=== PATIENT | female | born 2000 | race Caucasian/White ===

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

== ENCOUNTER 2022-04-08 14:32 | Emergency (ER) | payer MEDICAID, SELFPAY ==
[2022-04-08 14:35] VITALS: BP 134/74; PULSE 100; RESP 18; TEMP 36.7; O2SAT 98; BMI 26.6
--- NOTE | 2022-04-08 14:54 | ED_ITS ---
HPI - Abdominal Pain General Chief Complaint: Abdominal Pain Stated Complaint: Vomiting Related Data Previous Rx's Medication Instructions Recorded ondansetron 4 mg disintegrating 4 mg PO Q8H PRN nausea and 11/10/21 tablet vomiting #10 tabs cephalexin 500 mg capsule 500 mg PO QID 7 days #28 caps 11/23/21 doxycycline hyclate 100 mg tablet 100 mg PO BID 7 days #14 tabs 11/23/21 mupirocin 2 % topical ointment 1 appl topical TID #22 grams 11/23/21 Allergies Allergy/AdvReac Type Severity Reaction Status Date / Time No Known Allergies Allergy Verified 08/01/21 14:14 [facility] Past Medical History Medical History No known health problems Social History Social History Alcohol intake: never Advance Directives: No Advance Directives Information Provided: Yes Sexual orientation: Straight/Heterosexual Gender identity: Female Physical Exam ED Vital Signs: Vital Signs - 24 hr 04/08/22 14:35 Temperature 98.1 F Pulse Rate 100 Respiratory Rate 18 Blood Pressure 134/74 Pulse Oximetry 98 Oxygen Delivery Method Room Air BMI result Body Mass Index 26.6 Course Course Course Narrative: This is a rapid medical exam. Deferred additional HPI, ROS, PE to primary provider. Patient here with 1 hour of abdominal pain, vomiting, headache. Will check labs, UA, urine , COVID and flu testing. Will give sublingual Zofran. Vital signs stable Medications Administered Discontinued Medications Generic Name Dose Route Start Last Admin Trade Name Cayetanoq PRN Reason Stop Dose Admin Ondansetron HCl 4 mg 04/08/22 14:55 04/08/22 14:56 Ondansetron Odt 4 Mg Tab.Rapdis TRANSLINGU 04/08/22 14:56 4 mg ONCE ONE Administration MDM - Abdominal Pain Lab Data Labs: Lab Results 04/08/22 04/08/22 Range/Units 15:26 15:26 COVID-19 (LESLIE) Negative (Negative) COVID-19 Clin Com See Note Influenza Type A (KARISSA) Negative (Negative) Influenza Type B (KARISSA) Negative (Negative) Influenza A & B Note See Note Discharge Plan Discharge Clinical Impression: Abdominal pain Patient Disposition: Elopement Prescriptions: No Action ondansetron 4 mg tablet,disintegrating 4 mg PO Q8H PRN (Reason: nausea and vomiting) Qty: 10 0RF cephalexin 500 mg capsule 500 mg PO QID 7 Days Qty: 28 0RF doxycycline hyclate 100 mg tablet 100 mg PO BID 7 Days Qty: 14 0RF mupirocin 2 % ointment 1 appl topical TID Qty: 22 1RF Interventions: ED Discharge Assessment Last Done: 04/08/22 16:25 Discharge Date/Time: 04/08/22 16:26
[2022-04-08] MEDS: Ondansetron ODT 4 MG TAB.RAPDIS TRANSLINGU (14:56)
--- NOTE | 2022-04-08 15:43 | PC.NURSE ---
pt not tolerating blood work, stating to take the needle out immediately and swearing at staff. pt uncooperative. pt stated that she wanted to leave because the staff here is unprofessional and to open the door for her. pt pushing on the door to be let out and refused to speak further about the situation with staff, pt walked back out to the waiting room and is waiting in the entrance of the ED.
[2022-04-08 15:49] LABS: COVID-19 Test Negative (Negative); IDNOW Serial# 16C4AD1C
[2022-04-08 15:52] LABS: IDNOW Serial# 9DB6401D; Influenza A Negative (Negative); Influenza B2 Negative (Negative)
== END 2022-04-08 16:26 | disposition left against medical advice (07) ==
PROVIDERS: Nurse Practitioner Family; Emergency Provider Emergency Medicine
DX: R10.9 Unspecified abdominal pain (principal); R11.10 Vomiting, unspecified; Z20.822 Contact with and (suspected) exposure to COVID-19; Z79.899 Other long term (current) drug therapy
CPT/HCPCS: 87502; 87635; 99282

== ENCOUNTER 2022-11-01 09:45 | Emergency (ER) | payer MEDICAID, SELFPAY ==
[2022-11-01 10:10] VITALS: BP 124/92; PULSE 57; RESP 16; TEMP 36.6; O2SAT 100; BMI 26.4
[2022-11-01 10:43] LABS: MANUAL DIFF FLAG NO
[2022-11-01 10:45] LABS: Basophils Percent Auto 0.2 % (0-2); Eosinophils Percent Auto 0.1 % (0-4); Hematocrit 40.4 % (37.0-47.0); Hemoglobin 13.2 g/dl (12.0-16.0); Imm Gran Abs Auto 0.02 X10*3/uL (0.00-0.03); Imm Gran Pct Auto 0.2 % (0.0-0.4); Lymphocytes Percent Auto 11.9 % (20-40); Mean Corpuscular HGB Conc 32.7 g/dl (31.0-35.0); Mean Corpuscular Hemoglobin 26.9 pg (27.0-33.0); Mean Corpuscular Volume 82.4 fL (80.0-98.0); Mean Platelet Volume 12.9 fL (9.4-12.3); Monocytes Absolute Auto 0.3 X10*3/uL (0.1-1.2); Monocytes Percent Auto 3.5 % (2-11); Neutrophils Absolute Auto 7.4 x10*3/uL (2.0-8.3); Neutrophils Percent Auto 84.1 % (45-73); Platelet Count 335 X10*3/uL (160-400); Red Cell Distribution Width 13.9 % (11.0-16.0); White Blood Count 8.8 X10*3/uL (4.8-10.8)
[2022-11-01 11:04] LABS: Acetaminophen LAB < 17 mcg/mL (<30)
[2022-11-01 11:05] LABS: Alanine Aminotransferase 16 U/L (0-31); Albumin Level 4.4 g/dL (3.5-5.0); Alkaline Phosphatase 58 U/L (39-117); Anion Gap 15 (12-20); Aspartate Amino Transferase 18 U/L (5-31); Bilirubin Total 1.3 mg/dL (0.0-1.0); Blood Urea Nitrogen 7 mg/dL (9-16); Calcium 10.4 mg/dL (8.4-10.2); Carbon Dioxide 25 mmol/L (22-29); Chloride 105 mmol/L (96-108); Creatinine Clr Calc Pharmacy 139.3; Estimated Glomerular Filt Rate > 60; Glucose Random 92 mg/dL (60-115); Lipase 76 U/L (8-78); Potassium 3.8 mmol/L (3.3-5.1); Sodium 141 mmol/L (135-145); Total Protein 7.5 g/dL (6.5-8.0)
[2022-11-01 11:38] VITALS: BP 127/75; PULSE 54; RESP 14; TEMP 37; O2SAT 99
--- NOTE | 2022-11-01 11:38 | ED.NAVMDI ---
HPI - Nausea/Vomiting/Diarrhea General Chief complaint: Nausea/Vomiting/Diarrhea Stated complaint: vomiting Time Seen by Provider: 11/01/22 11:37 Source: patient, RN notes reviewed and old records reviewed Mode of arrival: ambulatory History of Present Illness HPI Narrative: 22-year-old female with no significant past medical history presenting to the ED complaining of accidental Tylenol and Motrin overdose since yesterday at noon. Patient admits to binge drinking 2 days ago, admits woke up yesterday hung over, nauseous and with epigastric abdominal pain as well as acute on chronic toothache, was taking 2-4 pills of 500 mg Tylenol and 2-4 pills of 200 mg ibuprofen every hour from noon until 02:00AM for dental pain. Patient denies SI/SI attempt. Denies other illicit substances or drugs yesterday. Reports decreased p.o. intake/inability to tolerate p.o., persistent nausea and abdominal discomfort. Denies fever/chills, diarrhea, dysuria/hematuria, melena/brbpr. Denies recent dental procedures, drainage from area MD elicited complaint: nausea, vomiting and abdominal pain Related Data Previous Rx's Medication Instructions Recorded ondansetron 4 mg disintegrating 4 mg PO Q8H PRN nausea and 11/10/21 tablet vomiting #10 tabs cephalexin 500 mg capsule 500 mg PO QID 7 days #28 caps 11/23/21 doxycycline hyclate 100 mg tablet 100 mg PO BID 7 days #14 tabs 11/23/21 mupirocin 2 % topical ointment 1 appl topical TID #22 grams 11/23/21 amoxicillin 500 mg capsule 500 mg PO Q8H 7 days #21 caps 11/01/22 Allergies Allergy/AdvReac Type Severity Reaction Status Date / Time No Known Allergies Allergy Verified 11/01/22 10:10 Review of Systems Review of Systems: Constitutional: No Fever, No Chills, No Fatigue, No Malaise ENT/Mouth: No Ear Pain, No Nasal Congestion, No sore throat, No Rhinorrhea, No Swallowing Difficulty Eyes: No Eye Pain, No Swelling, No Redness, No Vision Changes Cardiovascular: No Chest Pain, No SOB Respiratory: No Cough, No Sputum, No Dyspnea Gastrointestinal: + Nausea, + Vomiting, No Diarrhea, No Constipation, + Abdominal pain, No Hematochezia, No Melena Genitourinary: No Dysuria, No Urinary Frequency, No Hematuria, No Flank Pain Musculoskeletal: No joint pain, No Myalgias, No Joint Swelling Skin: No Skin Lesions, No rash Neuro: No Weakness, No Numbness, No Headache Psych: No Anxiety/Panic, No Depression, No SI/HI/AH/VH, No Social Issues Yes all other systems are reviewed and are negative Constitutional: Constitutional: Reports as per [facility] Past Medical History Attestation statement: The following information was validated with the patient. Source: old records reviewed Medical History No known health problems Social History Social History Alcohol intake: current Alcohol intake frequency: a few times a week Smoked in Last 30 Days: No Use of substances other than those prescribed or required for medical reasons: Yes Substance Use Type: Marijuana Substance Use Frequency: Daily Advance Directives: No Advance Directives Information Provided: No Sexual orientation: Straight/Heterosexual Gender identity: Female Physical Exam Vital Signs: Vital Signs: Last Vital Signs Temp 98.6 F 11/01/22 11:38 Pulse 62 11/01/22 12:43 Resp 18 11/01/22 12:43 BP 129/81 11/01/22 12:43 Pulse Ox 99 11/01/22 11:38 O2 Del Method Room Air 11/01/22 11:38 BMI result Body Mass Index 26.4 Const: General: cooperative, healthy appearing and no acute distress Orientation/consciousness: patient oriented x3 Limitations: no limitations HEENT: Other: Left lower bicuspid cracked/broken, no visible pulp, no erythema/fluctuance or induration. Mild gingival tenderness. Diffuse dental caries Head: Yes normal to inspection and Yes atraumatic Ears: hearing grossly normal bilaterally General nose exam: Normal external nose present Face and sinus: Yes normal facial exam Throat: Yes posterior oropharynx normal Eyes: General: appearance normal, both eyes and all related structures EOM: EOMs intact bilaterally Neck: Neck: Yes normal visual inspection and Yes no meningeal signs Resp: Effort & Inspection: normal respiratory effort and no respiratory distress Cardio: Rate: regular rate Heart sounds: S1 normal heart sound present and S2 normal heart sound present GI: Inspection: Yes normal to inspection Palpation (GI): Soft to palpation, nontender, no guarding and not rigid : General: Yes no CVA tenderness Back/Spine/Pelvis: Back: no CVA tenderness Skin: Rashes: no rashes Wounds: no wounds Neuro: General: patient oriented x3, tone normal and no meningeal signs Gait exam (Neuro): Normal gait present Extrem: General: Yes normal to inspection Psych: Thought content: suicidality and no homicidality Course Course Course Narrative: -initial labs reassuring, notable for total bilirubin of 1.3, salicylate and acetaminophen levels WNL > will continue to observe and repeat 4hr labs per poison recommendations -[id number]--repeat labs reassuring. Total bilirubin 1.1, salicylate and acetaminophen level remain unremarkable/undetectable -UA contaminated, we will hold off on antibiotics until culture results > patient has been tolerating PO Amaro in the ED without nausea or vomiting. -had lengthy discussion with patient educating on proper taking of Tylenol/Motrin and close PCP follow-up. Will give amoxicillin for dental pain. Results discussed with patient including worrisome signs and symptoms and strict return precautions, and when to return to the emergency department. They verbalized understanding and feel safe for discharge at this time. Medications Administered Discontinued Medications Generic Name Dose Route Start Last Admin Trade Name Freq PRN Reason Stop Dose Admin Sodium Chloride 1,000 mls @ 999 mls/hr 11/01/22 12:15 11/01/22 13:07 Ns IV 11/01/22 13:15 Infused .Q1H1M HEMALATHA Infusion Sodium Chloride 1,000 mls @ 999 mls/hr 11/01/22 12:30 11/01/22 14:20 Ns IV 11/01/22 13:30 Infused .Q1H1M HEMALATHA Infusion Ondansetron HCl 4 mg 11/01/22 12:04 11/01/22 12:08 Ondansetron Hcl 4 Mg/2 Ml Vial IVPUSH 11/01/22 12:05 4 mg ONCE ONE Administration Medical Decision Making Medical Decision Making MDM Narrative: 22-year-old female with no significant past medical history presenting to the ED complaining of accidental Tylenol and Motrin overdose since yesterday at noon. w/nausea, epigastric abdominal pain & acute on chronic dental pain. On exam vital signs stable, NAD, nontoxic appearing, chronically broken tooth as above with gingival tenderness, no appreciable cellulitis or abscess. Abdomen soft/nontender, no CVAT. Concern for accidental Tylenol/Motrin overdose vs GERD/gastritis vs pancreatitis. Lower suspicion cholecystitis/cholelithiasis or appendicitis/diverticulitis. No evidence of intraoral or abscess. No respiratory compromise, mental status WNL. Plan: EKG, labs, tox screen, UA, IVF, antiemetic, poison Control consult Please refer to course for remaining clinical decision making, interpretation of labs/imaging results, and discussions with consultants and/or family members. Differential Diagnosis Differential Diagnoses: The differential diagnosis associated with the presentation includes As above Admission/Observation Consideration of admission/observation: Escalation of care including admission/observation considered Consult Healthcare Provider Management of the patient was discussed with: [employer] (Poison control) Spoke with poison Control, recommended EKG, baseline labs including tox screen, supportive treatment with repeat CMP, INR, and Tylenol level in 4 hours. Lab Data MDM Lab Attestation statement: I reviewed the patient's lab results. 11/01/22 10:37 11/01/22 10:37 Labs: Lab Results 11/01/22 11/01/22 11/01/22 Range/Units 10:37 10:37 10:37 WBC 8.8 (4.8-10.8) X10*3/uL RBC 4.90 (4.20-5.50) X10*6/uL Hgb 13.2 (12.0-16.0) g/dl Hct 40.4 (37.0-47.0) % MCV 82.4 (80.0-98.0) fL MCH 26.9 L (27.0-33.0) pg MCHC 32.7 (31.0-35.0) g/dl RDW 13.9 (11.0-16.0) % Plt Count 335 (160-400) X10*3/uL MPV 12.9 H (9.4-12.3) fL Immature Gran % (Auto) 0.2 (0.0-0.4) % Neut % (Auto) 84.1 H (45-73) % Lymph % (Auto) 11.9 L (20-40) % Logan % (Auto) 3.5 (2-11) % Eos % (Auto) 0.1 (0-4) % Baso % (Auto) 0.2 (0-2) % Lymph # (Auto) 1.0 L (1.2-4.9) X10*3/uL Logan # (Auto) 0.3 (0.1-1.2) X10*3/uL Eos # (Auto) 0.0 (0.0-0.4) X10*3/uL Baso # (Auto) 0.0 (0.0-0.2) X10*3/uL Abs Immat Gran (auto) 0.02 (0.00-0.03) X10*3/uL Absolute Neuts (auto) 7.4 (2.0-8.3) x10*3/uL Absolute Nucleated RBC 0.000 (0.0-0.012) X10*3/uL Nucleated RBC % (auto) 0.0 (0.0-0.2) /100WBC PT (10.0-13.1) SEC INR (0.9-1.1) Sodium 141 (135-145) mmol/L Potassium 3.8 (3.3-5.1) mmol/L Chloride 105 (96-108) mmol/L Carbon Dioxide 25 (22-29) mmol/L Anion Gap 15 (12-20) BUN 7 L (9-16) mg/dL Creatinine 0.64 (0.5-1.4) mg/dL Estim Creat Clear Calc 139.3 Estimated GFR > 60 Random Glucose 92 (60-115) mg/dL Calcium 10.4 H (8.4-10.2) mg/dL Total Bilirubin 1.3 H (0.0-1.0) mg/dL Direct Bilirubin (0.0-0.5) mg/dL AST 18 (5-31) U/L ALT 16 (0-31) U/L Alkaline Phosphatase 58 (39-117) U/L Total Protein 7.5 (6.5-8.0) g/dL Albumin 4.4 (3.5-5.0) g/dL Lipase 76 (8-78) U/L Urine Color Urine Appearance Urine pH (5.0-9.0) Ur Specific [place] (1.005-1.025) Urine Protein (Neg-Trace) mg/dL Urine Glucose (UA) (Negative) mg/dL Urine Ketones (Negative) mg/dL Urine Blood (Negative) Urine Nitrite (Negative) Ur Leukocyte Esterase (Negative) Urine RBC (0-2) /HPF Urine WBC (0-5) /HPF Ur Squamous Epith Cells (0-2) /HPF Urine Bacteria (None Seen) Hyaline Casts (0-2) /LPF Urine Test (NEGATIVE) Salicylates (15-30) mg/dL Urine Opiates Screen (Not Detect) Urine Fentanyl Screen (Not Detect) Acetaminophen < 17 (<30) mcg/mL Ur Barbiturates Screen (Not Detect) Ur Phencyclidine Scrn (Not Detect) Ur Amphetamines Screen (Not Detect) U Benzodiazepines Scrn (Not Detect) Urine Cocaine Screen (Not Detect) U Marijuana (THC) Screen (Not Detect) Ethyl Alcohol < 10 mg/dL 11/01/22 11/01/22 11/01/22 Range/Units 11:44 11:44 11:44 WBC (4.8-10.8) X10*3/uL RBC (4.20-5.50) X10*6/uL Hgb (12.0-16.0) g/dl Hct (37.0-47.0) % MCV (80.0-98.0) fL MCH (27.0-33.0) pg MCHC (31.0-35.0) g/dl RDW (11.0-16.0) % Plt Count (160-400) X10*3/uL MPV (9.4-12.3) fL Immature Gran % (Auto) (0.0-0.4) % Neut % (Auto) (45-73) % Lymph % (Auto) (20-40) % Logan % (Auto) (2-11) % Eos % (Auto) (0-4) % Baso % (Auto) (0-2) % Lymph # (Auto) (1.2-4.9) X10*3/uL Logan # (Auto) (0.1-1.2) X10*3/uL Eos # (Auto) (0.0-0.4) X10*3/uL Baso # (Auto) (0.0-0.2) X10*3/uL Abs Immat Gran (auto) (0.00-0.03) X10*3/uL Absolute Neuts (auto) (2.0-8.3) x10*3/uL Absolute Nucleated RBC (0.0-0.012) X10*3/uL Nucleated RBC % (auto) (0.0-0.2) /100WBC PT (10.0-13.1) SEC INR (0.9-1.1) Sodium (135-145) mmol/L Potassium (3.3-5.1) mmol/L Chloride (96-108) mmol/L Carbon Dioxide (22-29) mmol/L Anion Gap (12-20) BUN (9-16) mg/dL Creatinine (0.5-1.4) mg/dL Estim Creat Clear Calc Estimated GFR Random Glucose (60-115) mg/dL Calcium (8.4-10.2) mg/dL Total Bilirubin (0.0-1.0) mg/dL Direct Bilirubin (0.0-0.5) mg/dL AST (5-31) U/L ALT (0-31) U/L Alkaline Phosphatase (39-117) U/L Total Protein (6.5-8.0) g/dL Albumin (3.5-5.0) g/dL Lipase (8-78) U/L Urine Color Yellow Urine Appearance Clear Urine pH 6.0 (5.0-9.0) Ur Specific [place] 1.025 (1.005-1.025) Urine Protein 30 (1+) H (Neg-Trace) mg/dL Urine Glucose (UA) Negative (Negative) mg/dL Urine Ketones >=160 (Negative) mg/dL Urine Blood Negative (Negative) Urine Nitrite Negative (Negative) Ur Leukocyte Esterase Negative (Negative) Urine RBC 3-5 H (0-2) /HPF Urine WBC 6-10 H (0-5) /HPF Ur Squamous Epith Cells 11-20 (0-2) /HPF Urine Bacteria 1+ (None Seen) Hyaline Casts 0-2 (0-2) /LPF Urine Test NEGATIVE (NEGATIVE) Salicylates (15-30) mg/dL Urine Opiates Screen Not Detected (Not Detect) Urine Fentanyl Screen Not Detected (Not Detect) Acetaminophen (<30) mcg/mL Ur Barbiturates Screen Not Detected (Not Detect) Ur Phencyclidine Scrn Not Detected (Not Detect) Ur Amphetamines Screen Not Detected (Not Detect) U Benzodiazepines Scrn Not Detected (Not Detect) Urine Cocaine Screen Not Detected (Not Detect) U Marijuana (THC) Screen POSITIVE H (Not Detect) Ethyl Alcohol mg/dL 11/01/22 11/01/22 11/01/22 Range/Units 12:04 15:51 15:51 WBC (4.8-10.8) X10*3/uL RBC (4.20-5.50) X10*6/uL Hgb (12.0-16.0) g/dl Hct (37.0-47.0) % MCV (80.0-98.0) fL MCH (27.0-33.0) pg MCHC (31.0-35.0) g/dl RDW (11.0-16.0) % Plt Count (160-400) X10*3/uL MPV (9.4-12.3) fL Immature Gran % (Auto) (0.0-0.4) % Neut % (Auto) (45-73) % Lymph % (Auto) (20-40) % Logan % (Auto) (2-11) % Eos % (Auto) (0-4) % Baso % (Auto) (0-2) % Lymph # (Auto) (1.2-4.9) X10*3/uL Logan # (Auto) (0.1-1.2) X10*3/uL Eos # (Auto) (0.0-0.4) X10*3/uL Baso # (Auto) (0.0-0.2) X10*3/uL Abs Immat Gran (auto) (0.00-0.03) X10*3/uL Absolute Neuts (auto) (2.0-8.3) x10*3/uL Absolute Nucleated RBC (0.0-0.012) X10*3/uL Nucleated RBC % (auto) (0.0-0.2) /100WBC PT 13.5 H (10.0-13.1) SEC INR 1.2 H (0.9-1.1) Sodium (135-145) mmol/L Potassium (3.3-5.1) mmol/L Chloride (96-108) mmol/L Carbon Dioxide (22-29) mmol/L Anion Gap (12-20) BUN (9-16) mg/dL Creatinine (0.5-1.4) mg/dL Estim Creat Clear Calc Estimated GFR Random Glucose (60-115) mg/dL Calcium (8.4-10.2) mg/dL Total Bilirubin (0.0-1.0) mg/dL Direct Bilirubin (0.0-0.5) mg/dL AST (5-31) U/L ALT (0-31) U/L Alkaline Phosphatase (39-117) U/L Total Protein (6.5-8.0) g/dL Albumin (3.5-5.0) g/dL Lipase (8-78) U/L Urine Color Urine Appearance Urine pH (5.0-9.0) Ur Specific [place] (1.005-1.025) Urine Protein (Neg-Trace) mg/dL Urine Glucose (UA) (Negative) mg/dL Urine Ketones (Negative) mg/dL Urine Blood (Negative) Urine Nitrite (Negative) Ur Leukocyte Esterase (Negative) Urine RBC (0-2) /HPF Urine WBC (0-5) /HPF Ur Squamous Epith Cells (0-2) /HPF Urine Bacteria (None Seen) Hyaline Casts (0-2) /LPF Urine Test (NEGATIVE) Salicylates < 5.0 L < 5.0 L (15-30) mg/dL Urine Opiates Screen (Not Detect) Urine Fentanyl Screen (Not Detect) Acetaminophen < 17 (<30) mcg/mL Ur Barbiturates Screen (Not Detect) Ur Phencyclidine Scrn (Not Detect) Ur Amphetamines Screen (Not Detect) U Benzodiazepines Scrn (Not Detect) Urine Cocaine Screen (Not Detect) U Marijuana (THC) Screen (Not Detect) Ethyl Alcohol mg/dL 11/01/22 Range/Units 15:51 WBC (4.8-10.8) X10*3/uL RBC (4.20-5.50) X10*6/uL Hgb (12.0-16.0) g/dl Hct (37.0-47.0) % MCV (80.0-98.0) fL MCH (27.0-33.0) pg MCHC (31.0-35.0) g/dl RDW (11.0-16.0) % Plt Count (160-400) X10*3/uL MPV (9.4-12.3) fL Immature Gran % (Auto) (0.0-0.4) % Neut % (Auto) (45-73) % Lymph % (Auto) (20-40) % Logan % (Auto) (2-11) % Eos % (Auto) (0-4) % Baso % (Auto) (0-2) % Lymph # (Auto) (1.2-4.9) X10*3/uL Logan # (Auto) (0.1-1.2) X10*3/uL Eos # (Auto) (0.0-0.4) X10*3/uL Baso # (Auto) (0.0-0.2) X10*3/uL Abs Immat Gran (auto) (0.00-0.03) X10*3/uL Absolute Neuts (auto) (2.0-8.3) x10*3/uL Absolute Nucleated RBC (0.0-0.012) X10*3/uL Nucleated RBC % (auto) (0.0-0.2) /100WBC PT (10.0-13.1) SEC INR (0.9-1.1) Sodium 140 (135-145) mmol/L Potassium 3.4 (3.3-5.1) mmol/L Chloride 109 H (96-108) mmol/L Carbon Dioxide 25 (22-29) mmol/L Anion Gap 9 L (12-20) BUN 7 L (9-16) mg/dL Creatinine 0.65 (0.5-1.4) mg/dL Estim Creat Clear Calc 137.2 Estimated GFR > 60 Random Glucose 108 (60-115) mg/dL Calcium 9.3 D (8.4-10.2) mg/dL Total Bilirubin 1.1 H (0.0-1.0) mg/dL Direct Bilirubin 0.4 (0.0-0.5) mg/dL AST 17 (5-31) U/L ALT 15 (0-31) U/L Alkaline Phosphatase 56 (39-117) U/L Total Protein 7.3 (6.5-8.0) g/dL Albumin 4.3 (3.5-5.0) g/dL Lipase (8-78) U/L Urine Color Urine Appearance Urine pH (5.0-9.0) Ur Specific [place] (1.005-1.025) Urine Protein (Neg-Trace) mg/dL Urine Glucose (UA) (Negative) mg/dL Urine Ketones (Negative) mg/dL Urine Blood (Negative) Urine Nitrite (Negative) Ur Leukocyte Esterase (Negative) Urine RBC (0-2) /HPF Urine WBC (0-5) /HPF Ur Squamous Epith Cells (0-2) /HPF Urine Bacteria (None Seen) Hyaline Casts (0-2) /LPF Urine Test (NEGATIVE) Salicylates (15-30) mg/dL Urine Opiates Screen (Not Detect) Urine Fentanyl Screen (Not Detect) Acetaminophen (<30) mcg/mL Ur Barbiturates Screen (Not Detect) Ur Phencyclidine Scrn (Not Detect) Ur Amphetamines Screen (Not Detect) U Benzodiazepines Scrn (Not Detect) Urine Cocaine Screen (Not Detect) U Marijuana (THC) Screen (Not Detect) Ethyl Alcohol mg/dL Independent Interpretation I performed an independent interpretation of an: EKG Radiology Impression Discussion of test interpretation with radiology: I have reviewed the radiologist's reading. External Record Review External record reviewed: Inpatient record, Office record, Outpatient record, Prior outpatient labs, Prior outpatient radiology, Primary care record and Outside ED record Tests considered The following testing was considered but not selected: As above Discharge Plan Discharge Clinical Impression: Unintentional Tylenol overdose, Accidental ibuprofen overdose, Pain, dental Patient Disposition: Home, Self-Care Instructions: Acetaminophen Overdose (ED), Toothache (ED) Additional Instructions: Your blood work is reassuring Your taking Tylenol and Motrin incorrectly, do not take more often than directed on the bottle. Do not exceed 4000mg of Tylenol or 32oomg of Motrin/Ibuprofen in 1 day, this can cause liver/kidney failure and Amoxicillin as an antibiotic please take as prescribed follow-up with her dentist Prescriptions: New amoxicillin 500 mg capsule 500 mg PO Q8H 7 Days Qty: 21 0RF No Action ondansetron 4 mg tablet,disintegrating 4 mg PO Q8H PRN (Reason: nausea and vomiting) Qty: 10 0RF cephalexin 500 mg capsule 500 mg PO QID 7 Days Qty: 28 0RF doxycycline hyclate 100 mg tablet 100 mg PO BID 7 Days Qty: 14 0RF mupirocin 2 % ointment 1 appl topical TID Qty: 22 1RF Referrals: Physician,Unknown J [Primary Care Provider] -
[2022-11-01 11:58] LABS: Appearance Urine Clear; Color Urine Yellow; Glucose Urine UA Negative (Negative); Leukocyte Esterase Urine Negative (Negative); Nitrite Urine Negative (Negative); Specific Gravity - Urine 1.025 (1.005-1.025); UMIC TRIGGER UACC YES; Urine Blood Negative (Negative); Urine Ketones >=160 mg/dL (Negative); Urine Protein 30 (1+) mg/dL (Neg-Trace)
--- NOTE | 2022-11-01 12:01 | ECG_ITS ---
Test Reason : EVAL QTC Blood Pressure : / mmHG Vent. Rate : 052 BPM Atrial Rate : 052 BPM P-R Int : 114 ms QRS Dur : 080 ms QT Int : 488 ms P-R-T Axes : 012 083 037 degrees QTc Int : 453 ms Sinus bradycardia Otherwise normal ECG No previous ECGs available Referred By: Rebekah Zurita Electronically Signed By:Estuardo Dorman
[2022-11-01 12:03] LABS: Bacteria Urine 1+ (None Seen); Hyaline Casts Urine 0-2 /LPF (0-2); UACC Culture Trigger YES; UPreg QC Valid YES; Urine Pregnancy NEGATIVE (NEGATIVE)
[2022-11-01] MEDS: 0.9 % Sodium Chloride 1,000 ML 999 ML IV ×2 (12:06→12:42)
[2022-11-01] MEDS: ondansetron HCL 4 MG/2 ML VIAL IVPUSH (12:08)
[2022-11-01 12:09] LABS: Amphetamine Screen Urine Not Detected (Not Detect); Barbiturates, Urine Not Detected (Not Detect); Benzodiazepines Screen Urine Not Detected (Not Detect); Cannabinoid Screen Urine POSITIVE (Not Detect); Cocaine Screen Urine Not Detected (Not Detect); Fentanyl, urine Not Detected (Not Detect); Opiate Screen Urine Not Detected (Not Detect); Phencyclidine Screen Urine Not Detected (Not Detect)
[2022-11-01 12:13] LABS: Ethanol < 10 mg/dL
--- NOTE | 2022-11-01 12:21 | PC.NURSE ---
pt alert and oriented, skin appropriate for ethnicity, respirations even and unlabored, abd soft and slightly tender with palpations in the epigastric area, pt reports drinking heavily two days ago and having a bad tooth ache on the left lower as well and self medicating for pain with tylenol and motrin- not really clear on how many tabs or how often states she has been taking meds every hour or two, last she took was Tylenol around 0200 500mg tabs and roughly 3-4 tabs. pt has been vomiting since then unable to tolerate anything by mouth, last vomit was around 0800 this morning, ns on the monitor at high 50's -low 60. vs stable
[2022-11-01 12:43] VITALS: BP 129/81; PULSE 62; RESP 18
[2022-11-01 12:49] LABS: Salicylate < 5.0 mg/dL (15-30)
[2022-11-01 16:10] LABS: INTERNATIONAL NORM RATIO 1.2 (0.9-1.1); Prothrombin Time 13.5 SEC (10.0-13.1)
[2022-11-01 16:16] LABS: Acetaminophen LAB < 17 mcg/mL (<30)
[2022-11-01 16:29] LABS: Alanine Aminotransferase 15 U/L (0-31); Albumin Level 4.3 g/dL (3.5-5.0); Alkaline Phosphatase 56 U/L (39-117); Anion Gap 9 (12-20); Aspartate Amino Transferase 17 U/L (5-31); Bilirubin Direct 0.4 mg/dL (0.0-0.5); Bilirubin Total 1.1 mg/dL (0.0-1.0); Blood Urea Nitrogen 7 mg/dL (9-16); Calcium 9.3 mg/dL (8.4-10.2); Carbon Dioxide 25 mmol/L (22-29); Chloride 109 mmol/L (96-108); Creatinine Clr Calc Pharmacy 137.2; Estimated Glomerular Filt Rate > 60; Glucose Random 108 mg/dL (60-115); Potassium 3.4 mmol/L (3.3-5.1); Sodium 140 mmol/L (135-145); Total Protein 7.3 g/dL (6.5-8.0)
[2022-11-01 16:49] LABS: Salicylate < 5.0 mg/dL (15-30)
--- NOTE | 2022-11-01 16:52 | MHC.EDTECH ---
PATIENT EATING AND DRINKING FLUIDS WITH NO ISSUES.
== END 2022-11-01 17:09 | disposition home or self-care (01) ==
PROVIDERS: Physician Assistant; Emergency Provider Emergency Medicine
DX: R11.2 Nausea with vomiting, unspecified (principal); T39.1X1A Poisoning by 4-Aminophenol derivatives, accidental (unintentional), initial encounter; R00.1 Bradycardia, unspecified; Y92.9 Unspecified place or not applicable; K08.89 Other specified disorders of teeth and supporting structures; Z79.899 Other long term (current) drug therapy
CPT/HCPCS: 36415; 80048; 80053; 80076; 80143; 80179; 80307; 81001; 81025; 83690; 85025; 85610; 87086; 93005; 96361; 96374; 99284; 99285; J2405

== ENCOUNTER 2023-03-10 10:03 | Emergency (ER) | payer MEDICAID, SELFPAY ==
--- NOTE | ~2023-03-10 | US_ITS ---
EXAMINATION: US OBSTETRICAL ULTRASOUND CLINICAL INFORMATION: Nausea and vomiting. Evaluate for ectopic . COMPARISON: No comparison pelvic ultrasound exam. LMP: 01/20/2023. Gestational age by maternal dates is 7 weeks. Estimated date of delivery by maternal dates is 10/27/2023. TECHNIQUE: Sonographic imaging of the pelvis is performed using transabdominal and transvaginal transducers. FINDINGS: The uterus is anteverted, anteflexed. The myometrial echotexture is normal. No evidence of leiomyoma. A gestational sac is well-positioned within the fundal portion of the endometrium and there is surrounding decidual reaction. A normal yolk sac of approximately 0.3 cm diameter is present. The pole has a crown-rump length of 0.5 cm, corresponding to gestational age of 6 weeks, 2 days. The SILVESTRE is 11/01/2023. The heart rate is 110 bpm. No evidence of subchorionic hemorrhage. The maternal ovaries are normal. The right ovary is 3.6 x 2.4 x 3.2 cm and left ovary 2.3 x 1.6 x 1.2 cm. The largest follicle within the right ovary is 2 cm. No adnexal mass. No pelvic free fluid. US/US OB pelvic and transvaginal IMPRESSION: Single viable intrauterine gestation. The estimated gestational age is 6 weeks, 2 days and estimated date of delivery of 11/01/2023.
[2023-03-10 10:15] VITALS: BP 123/73; PULSE 81; RESP 18; TEMP 36.7; O2SAT 100; BMI 24.3
[2023-03-10 10:26] VITALS: BP 105/63; PULSE 77; RESP 19; TEMP 36.9
--- NOTE | 2023-03-10 10:31 | PC.NURSE ---
Patient reports n/v/d that started at 11p last night. Patient report is 6-7 weeks , last period jan 20. Denies sob, chest pain or headache
--- NOTE | 2023-03-10 10:37 | ED.NAVMDI ---
HPI - Nausea/Vomiting/Diarrhea General Chief complaint: Nausea/Vomiting/Diarrhea Stated complaint: /Vomiting Time Seen by Provider: 03/10/23 10:30 Source: patient Mode of arrival: ambulatory Limitations: no limitations History of Present Illness HPI Narrative: This is a 22 years old female about 6 weeks gestation, presented to the emergency department complaining of nausea vomiting since last night she states she has been unable to keep anything down denies any fevers chills diarrhea. She has some lower abdominal cramps. MD elicited complaint: vomiting Pertinent past history: anorexia Description of vomiting: watery Associated nausea: Yes Location of pain: suprapubic Quality: cramping Exacerbating factors: none Relieving factors: none Related Data Previous Rx's Medication Instructions Recorded ondansetron 4 mg disintegrating 4 mg PO Q8H PRN nausea and 11/10/21 tablet vomiting #10 tabs cephalexin 500 mg capsule 500 mg PO QID 7 days #28 caps 11/23/21 doxycycline hyclate 100 mg tablet 100 mg PO BID 7 days #14 tabs 11/23/21 mupirocin 2 % topical ointment 1 appl topical TID #22 grams 11/23/21 amoxicillin 500 mg capsule 500 mg PO Q8H 7 days #21 caps 11/01/22 metoclopramide HCl 10 mg tablet 10 mg PO Q6H PRN nausea and 03/10/23 (Reglan) vomiting #15 tabs Allergies Allergy/AdvReac Type Severity Reaction Status Date / Time No Known Allergies Allergy Verified 03/10/23 10:15 Review of Systems Constitutional: Constitutional: Reports no additional constitutional complaints ENT: Reports system reviewed and no additional complaints, except as documented Cardiovascular: Cardiovascular: Reports no additional cardiovascular complaints Respiratory: Respiratory: Reports no additional respiratory complaints Gastrointestinal: Gastrointestinal: Reports nausea and Reports vomiting [facility] Past Medical History Attestation statement: The following information was validated with the patient. [facility] Narrative: Patient denies any medical problems Medical History No known health problems Social History Social History Alcohol intake: former Smoked in Last 30 Days: No Substance Use Type: Marijuana Advance Directives: No Patient : Yes Sexual orientation: Straight/Heterosexual Gender identity: Female Physical Exam Vital Signs: Vital Signs: Last Vital Signs Temp 98.4 F 03/10/23 10:26 Pulse 77 03/10/23 10:26 Resp 19 03/10/23 10:26 BP 105/63 03/10/23 10:26 Pulse Ox 100 03/10/23 10:15 O2 Del Method Room Air 03/10/23 10:15 BMI result Body Mass Index 24.3 Const: General: cooperative and comfortable Nutritional Appearance: well nourished Orientation/consciousness: patient oriented x3 Limitations: no limitations HEENT: Head: Yes normal to inspection Ears: hearing grossly normal bilaterally General nose exam: Normal external nose present Face and sinus: Yes normal facial exam Neck: Neck: Yes normal visual inspection and Yes full ROM Chest: Chest palpation & inspection: normal inspection of the chest Resp: Effort & Inspection: normal respiratory effort Auscultation: clear to auscultation bilaterally Cardio: Jugular venous distension: no JVD Rhythm: regular rhythm GI: Inspection: Yes normal to inspection Palpation (GI): Soft to palpation, not firm and nontender Percussion: Yes normal to percussion Skin: General skin exam: no rashes or lesions noted, elasticity normal and turgor normal Lesions: no lesions Rashes: no rashes Neuro: General: patient oriented x3 Course Reevaluation(s) Reevaluation #1: Asymptomatic at this time Time: 13:06 Medications Administered Discontinued Medications Generic Name Dose Route Start Last Admin Trade Name Freq PRN Reason Stop Dose Admin Sodium Chloride 1,000 mls @ 999 mls/hr 03/10/23 10:45 03/10/23 11:28 Ns IVCONT 03/10/23 11:45 Infused .Q1H1M HEMALATHA Infusion Sodium Chloride 1,000 mls @ 999 mls/hr 03/10/23 10:45 03/10/23 13:02 Ns IVCONT 03/10/23 11:45 Infused .Q1H1M HEMALATHA Infusion Metoclopramide HCl 10 mg 03/10/23 10:33 03/10/23 10:43 Metoclopramide Hcl 10 Mg/2 Ml Vial IVPUSH 03/10/23 10:34 10 mg ONCE ONE Administration Medical Decision Making Medical Decision Making MDM Narrative: Patient presented with nausea vomiting she is most likely this is hyperemesis. Will provide fluid antiemetic in reassessed Differential Diagnosis Differential Diagnoses: The differential diagnosis associated with the presentation includes Hyperemesis of /gastroenteritis/viral illness Admission/Observation Consideration of admission/observation: Escalation of care including admission/observation considered Lab Data MDM Lab Attestation statement: I reviewed the patient's lab results. 03/10/23 10:41 03/10/23 10:41 Labs: Lab Results 03/10/23 Range/Units 10:41 WBC 8.5 (4.8-10.8) X10*3/uL RBC 4.38 (4.20-5.50) X10*6/uL Hgb 12.0 (12.0-16.0) g/dl Hct 36.0 L (37.0-47.0) % MCV 82.2 (80.0-98.0) fL MCH 27.4 (27.0-33.0) pg MCHC 33.3 (31.0-35.0) g/dl RDW 12.9 (11.0-16.0) % Plt Count 257 (160-400) X10*3/uL MPV 12.8 H (9.4-12.3) fL Immature Gran % (Auto) 0.4 (0.0-0.4) % Neut % (Auto) 78.5 H (45-73) % Lymph % (Auto) 16.3 L (20-40) % [place] % (Auto) 3.5 (2-11) % Eos % (Auto) 1.1 (0-4) % Baso % (Auto) 0.2 (0-2) % Lymph # (Auto) 1.4 (1.2-4.9) X10*3/uL [place] # (Auto) 0.3 (0.1-1.2) X10*3/uL Eos # (Auto) 0.1 (0.0-0.4) X10*3/uL Baso # (Auto) 0.0 (0.0-0.2) X10*3/uL Abs Immat Gran (auto) 0.03 (0.00-0.03) X10*3/uL Absolute Neuts (auto) 6.7 (2.0-8.3) x10*3/uL Absolute Nucleated RBC 0.000 (0.0-0.012) X10*3/uL Nucleated RBC % (auto) 0.0 (0.0-0.2) /100WBC Sodium 137 (135-145) mmol/L Potassium 3.9 (3.3-5.1) mmol/L Chloride 105 (96-108) mmol/L Carbon Dioxide 24 (22-29) mmol/L Anion Gap 12 (12-20) BUN 6 L (9-16) mg/dL Creatinine 0.67 (0.5-1.4) mg/dL Estim Creat Clear Calc 125.4 Estimated GFR > 60 Random Glucose 82 (60-115) mg/dL Calcium 9.5 (8.4-10.2) mg/dL Total Bilirubin 0.5 (0.0-1.0) mg/dL Direct Bilirubin 0.2 (0.0-0.5) mg/dL AST 16 (5-31) U/L ALT 12 (0-31) U/L Alkaline Phosphatase 48 (39-117) U/L Total Protein 7.4 (6.5-8.0) g/dL Albumin 4.4 (3.5-5.0) g/dL Beta HCG, Quant 79726 mIU/mL Independent Interpretation I performed an independent interpretation of an: Ultrasound Interpretation: IUP Radiology Impression Discussion of test interpretation with radiology: I have reviewed the radiologist's reading. Radiologist Impression: FINDINGS: The uterus is anteverted, anteflexed. The myometrial echotexture is normal. No evidence of leiomyoma. A gestational sac is well-positioned within the fundal portion of the endometrium and there is surrounding decidual reaction. A normal yolk sac of approximately 0.3 cm diameter is present. The pole has a crown-rump length of 0.5 cm, corresponding to gestational age of 6 weeks, 2 days. The SILVESTRE is 11/01/2023. The heart rate is 110 bpm. No evidence of subchorionic hemorrhage. The maternal ovaries are normal. The right ovary is 3.6 x 2.4 x 3.2 cm and left ovary 2.3 x 1.6 x 1.2 cm. The largest follicle within the right ovary is 2 cm. No adnexal mass. No pelvic free fluid. US/US OB pelvic and transvaginal IMPRESSION: Single viable intrauterine gestation. The estimated gestational age is 6 weeks, 2 days and estimated date of delivery of 11/01/2023. Discharge Plan Discharge Clinical Impression: Hyperemesis gravidarum Patient Disposition: Home, Self-Care Instructions: Hyperemesis Gravidarum (ED) Prescriptions: New metoclopramide HCl [Reglan] 10 mg tablet 10 mg PO Q6H PRN (Reason: nausea and vomiting) Qty: 15 0RF No Action ondansetron 4 mg tablet,disintegrating 4 mg PO Q8H PRN (Reason: nausea and vomiting) Qty: 10 0RF cephalexin 500 mg capsule 500 mg PO QID 7 Days Qty: 28 0RF doxycycline hyclate 100 mg tablet 100 mg PO BID 7 Days Qty: 14 0RF mupirocin 2 % ointment 1 appl topical TID Qty: 22 1RF amoxicillin 500 mg capsule 500 mg PO Q8H 7 Days Qty: 21 0RF Referrals: Kashmir Gomez MD [Physician] - 3 days
[2023-03-10] MEDS: Metoclopramide HCl 10 MG/2 ML VIAL IVPUSH (10:43)
[2023-03-10] MEDS: 0.9 % Sodium Chloride 1,000 ML 999 ML IVCONT ×2 (10:44→11:28)
[2023-03-10 10:45] LABS: MANUAL DIFF FLAG NO
[2023-03-10 10:47] LABS: Basophils Percent Auto 0.2 % (0-2); Eosinophils Absolute Auto 0.1 X10*3/uL (0.0-0.4); Eosinophils Percent Auto 1.1 % (0-4); Imm Gran Abs Auto 0.03 X10*3/uL (0.00-0.03); Imm Gran Pct Auto 0.4 % (0.0-0.4); Lymphocytes Absolute Auto 1.4 X10*3/uL (1.2-4.9); Lymphocytes Percent Auto 16.3 % (20-40); Mean Corpuscular HGB Conc 33.3 g/dl (31.0-35.0); Mean Corpuscular Hemoglobin 27.4 pg (27.0-33.0); Mean Corpuscular Volume 82.2 fL (80.0-98.0); Mean Platelet Volume 12.8 fL (9.4-12.3); Monocytes Absolute Auto 0.3 X10*3/uL (0.1-1.2); Monocytes Percent Auto 3.5 % (2-11); Neutrophils Absolute Auto 6.7 x10*3/uL (2.0-8.3); Neutrophils Percent Auto 78.5 % (45-73); Platelet Count 257 X10*3/uL (160-400); Red Blood Count 4.38 X10*6/uL (4.20-5.50); Red Cell Distribution Width 12.9 % (11.0-16.0); White Blood Count 8.5 X10*3/uL (4.8-10.8)
[2023-03-10 11:01] LABS: Anion Gap 12 (12-20); Blood Urea Nitrogen 6 mg/dL (9-16); Calcium 9.5 mg/dL (8.4-10.2); Carbon Dioxide 24 mmol/L (22-29); Chloride 105 mmol/L (96-108); Creatinine Clr Calc Pharmacy 125.4; Estimated Glomerular Filt Rate > 60; Glucose Random 82 mg/dL (60-115); Potassium 3.9 mmol/L (3.3-5.1); Sodium 137 mmol/L (135-145)
[2023-03-10 11:03] LABS: Alanine Aminotransferase 12 U/L (0-31); Albumin Level 4.4 g/dL (3.5-5.0); Alkaline Phosphatase 48 U/L (39-117); Aspartate Amino Transferase 16 U/L (5-31); Bilirubin Direct 0.2 mg/dL (0.0-0.5); Bilirubin Total 0.5 mg/dL (0.0-1.0); Total Protein 7.4 g/dL (6.5-8.0)
--- NOTE | 2023-03-10 13:14 | PC.NURSE ---
Discharge plan reviewed with patient who verbalized understanding
== END 2023-03-10 13:14 | disposition home or self-care (01) ==
PROVIDERS: Emergency Provider Emergency Medicine
DX: O21.0 Mild hyperemesis gravidarum (principal); Z3A.01 Less than 8 weeks gestation of pregnancy
CPT/HCPCS: 36415; 76801; 76817; 80048; 80076; 84702; 85025; 96361; 96374; 99284; J2765

== ENCOUNTER 2024-01-24 17:58 | Outpatient (REF) | payer MEDICAID, SELFPAY | END 2024-01-24 17:59 | disposition home or self-care (01) | LOC: HO.HHCLNP 17:58 | PROVIDERS: Visit Provider Nurse Practitioner Family | DX: L02.411 Cutaneous abscess of right axilla (principal) | CPT/HCPCS: 87070; 87077; 87186; 87205 ==

== ENCOUNTER 2024-01-28 10:54 | Outpatient (AMB) | payer MEDICAID, SELFPAY ==
--- NOTE | 2024-01-28 11:01 | MHC.OFFVIS ---
Vital Signs 01/28/24 11:10 Height 5 ft 6 in Weight 156 lb BMI 25.2 BP 129/58 L Blood Pressure Location Rt brachial Position Sitting Pulse 93 Intake Visit Reasons: Axillary abscess Intake Note: Patient here as urgent appointment for abscess on rt upper arm since Saturday. Was seen at [facility] ER but left early. Patient c/o: tenderness to touch, redness. Healing since starting Doxycycline. Lead Web Application Developer Required: No Accompanied by: mother Lesli Allergies No Known Allergies Allergy (Verified 01/28/24 11:09) HPI Comments Details: Patient presents with her mother and her child. She has a longstanding history of hidradenitis suppurativa involving bilateral axillae. She presents here for follow-up status post right axillary hidradenitis suppurativa with an abscess which spontaneously drained and cellulitis which has since improved with antibiotic therapy. As noted above, patient has had a longstanding history of this ailment. She is currently feeling better from the right axillary symptoms since spontaneous drainage. Chart was reviewed and patient evaluated [facility] Medical History No known health problems Social History Alcohol intake: former Substance Use Type: Marijuana Sexual orientation: Straight/Heterosexual Gender identity: Female Female Reproductive History Menstrual Age of Menarche: 14 Physical Exam Vital Signs: Last Vital Signs Pulse 93 01/28/24 11:10 BP 129/58 L 01/28/24 11:10 BMI result Body Mass Index 25.2 Extrem Other: Patient has markings for her cellulitis was previously extending which has completely resolved. She has an abscess cavity which has been drained and no evidence on pressure of any further purulence. Assessment & Plan Assessment & Plan (1) Hidradenitis suppurativa: Code(s): L73.2 - Hidradenitis suppurativa Category: Surgical (2) H/O drainage of abscess: Code(s): Z98.890 - Other specified postprocedural states Category: Surgical Plan Patient has resolution of right axillary abscess and her cellulitis of right axillary area most likely from her recurrent hidradenitis suppurativa. No acute surgical issues or interventions at this time. Patient and mother have been given local instructions which the patient has said she has had been handling since age 18 because of this ailment and she will otherwise follow-up p.r.n.. All questions answered. Coding Level of Care Code New Pt Level 4 (44561) Diagnoses Hidradenitis suppurativa L73.2 H/O drainage of abscess Z98.890
[2024-01-28 11:10] VITALS: BP 129/58; PULSE 93; BMI 25.2
== END 2024-01-28 11:17 | disposition home or self-care (01) ==
PROVIDERS: Visit Provider Surgery
DX: L73.2 Hidradenitis suppurativa (principal); Z98.890 Other specified postprocedural states
CPT/HCPCS: 99204

== ENCOUNTER → 2024-01-28 10:54 | Outpatient (BNVA) | payer MEDICAID, SELFPAY | PROVIDERS: Visit Provider Surgery | DX: L73.2 Hidradenitis suppurativa (principal); Z98.890 Other specified postprocedural states | CPT/HCPCS: 99202 ==

== ENCOUNTER 2024-02-24 15:46 | Outpatient (REF) | payer MEDICAID, SELFPAY ==
[2024-02-25 14:42] LABS: CT PCR NOT DETECTED (Not Detect.); NG PCR NOT DETECTED (Not Detect.)
== END 2024-02-24 15:47 | disposition home or self-care (01) ==
LOC: HO.LNP 15:46
PROVIDERS: Visit Provider Nurse Practitioner
DX: Z13.9 Encounter for screening, unspecified (principal)
CPT/HCPCS: 87491; 87591

== ENCOUNTER 2024-09-15 09:25 | Emergency (ER) | payer MEDICAID, SELFPAY ==
[2024-09-15 09:39] VITALS: BP 108/76; PULSE 81; RESP 16; TEMP 36.9; O2SAT 99; BMI 29.2
[2024-09-15] MEDS: ondansetron HCL 4 MG/2 ML VIAL IVPUSH (10:22)
[2024-09-15] MEDS: Lactated Ringers 1,000 ML 999 ML IV (10:23)
--- NOTE | 2024-09-15 10:29 | ED.GENADULT ---
HPI - General Adult General Chief complaint: Nausea/Vomiting/Diarrhea Stated complaint: Abd pain, vomiting Time Seen by Provider: 09/15/24 10:13 Source: patient Mode of arrival: ambulatory Limitations: no limitations History of Present Illness ED Provider: Royer Borges PA-C HPI narrative: 24 yo female without significant PMH on depo-provera who presents to ED with complaints of N/V with associated lower abdominal pain/suprapubic pain since over night after drinking alcohol for the first time in awhile. Indicates she retrieved her own drinks from the bar and did not leave them alone and remembers her entire evening. She had consumed 3 mixed drinks in about 45 mins. Indicates feels like air bubble and tightness, is passing flatus, describes having this tightness and air bubble before but self resolved.Denies hematuria, hemoptosis, or bloody in stools, abdominal pain is not radiating, not tender to palpation. Denies any recent sexual activity or exposure to STIs, no fevers, rash, chills or diaphoresis. MD complaint: N/V Onset (ago): hour(s) Location: abdomen and pelvis Radiation: non-radiation Severity: mild Quality: other (tight) Pain Consistency: other (when standing or bending) Relieving factors: rest Exacerbating factors: movement Associated symptoms: denies other symptoms Related Data Previous Rx's ?Medication ?Instructions ?Recorded ondansetron 4 mg disintegrating 4 mg PO Q8H PRN nausea and 11/10/21 tablet vomiting #10 tabs mupirocin 2 % topical ointment 1 appl topical TID #22 grams 11/23/21 metoclopramide HCl 10 mg tablet 10 mg PO Q6H PRN nausea and 03/10/23 (Reglan) vomiting #15 tabs Allergies Allergy/AdvReac Type Severity Reaction Status Date / Time No Known Allergies Allergy Verified 09/15/24 09:41 [facility] Past Medical History Medical History No known health problems Social History Social History (System 01/30/24 @ 16:13 by Edna Lockett) Alcohol intake: former Substance Use Type: Marijuana Advance Directives: No Advance Directives Information Provided: Yes Sexual orientation: Straight/Heterosexual Gender identity: Female Physical Exam ED Vital Signs: Vital Signs - 24 hr 09/15/24 09:39 Temperature 98.4 F Pulse Rate 81 Respiratory Rate 16 Blood Pressure 108/76 Pulse Oximetry 99 Oxygen Delivery Method Room Air BMI result Body Mass Index 29.2 Appearance: Alert. Oriented X3. No acute distress. Head: normocephalic, atraumatic. Eyes: Pupils equal, round and reactive to light. ENT: Pharynx normal. No tonsillar swelling or exudate. Neck: Normal inspection. Neck supple. CVS: Normal heart rate and rhythm. Pulses normal. Respiratory: No respiratory distress. Breath sounds normal. Abdomen: Soft and nontender. +BS x4 Skin: Skin warm and dry. Normal skin color. Normal skin turgor. No rashes. Extremities: No lower extremity edema. No joint swelling. Neuro/psych: Oriented X 3. No motor deficit. No sensory deficit. CN II-XII intact. Normal speech and cognition. Medications Administered Discontinued Medications Generic Name Dose Route Start Last Admin Trade Name Freq PRN Reason Stop Dose Admin Lactated Ringer's 1,000 mls @ 999 mls/hr 09/15/24 10:15 09/15/24 10:23 Lr IV 09/15/24 11:15 999 mls/hr .Q1H1M HEMALATHA Administration Ondansetron HCl 4 mg 09/15/24 10:14 09/15/24 10:22 Ondansetron Hcl 4 Mg/2 Ml Vial IVPUSH 09/15/24 10:15 4 mg ONCE ONE Administration Medical Decision Making Medical Decision Making MDM Narrative: 24 yo female who reports lower abdominal pain and N/V after a night of drinking alcohol. Physical exam is negative for any red flag findings such as burning or pain with urination, flank pain, hematuria, severe abdominal pain or rebound tenderness, abdominal rigidity, dysphagia, bloody or tarry stools, no jaundice, abdominal distention. Based on the physical exam findings there is low suspicion for appendicitis, peritonitis, UTI or STI. Patient was treated with IV fluids and IV Zofran with resolution of her symptoms. She was tolerating p.o. and wanting to leave the emergency department. She not provide a urinalysis but states she just took a test the other day and it was negative. She denies any urinary symptoms. She would like to be discharged home as her symptoms have resolved. Patient counseled and is stable for discharge. Differential Diagnosis Differential Diagnoses: The differential diagnosis associated with the presentation includes Adverse effects of alcohol, dehydration, MAXIM, gastroenteritis, appendicitis, ectopic , , SBO, peritonitis, pancreatitis, Admission/Observation Consideration of admission/observation: Escalation of care including admission/observation considered External Record Review External record reviewed: Prior outpatient labs Tests considered The following testing was considered but not selected: basic labs were considered however low suspicion for acute abdominal process CT scan of the abdomen was considered however abdominal exam is benign Prescription Management I considered prescription management with: Antibiotic and Other ( antiemetic) Critical Care Time Critical Care Time Critical Care Time: No Discharge Plan Discharge Clinical Impression: Vomiting Qualifiers: Vomiting type: unspecified Nausea presence: with nausea Qualified Code(s): R11.2 - Nausea with vomiting, unspecified Patient Disposition: Home, Self-Care Instructions: Acute Nausea and Vomiting (DC) Additional Instructions: Your vomiting was likely due to your alcohol intake last night. Drink plenty of fluids and rest today. Follow-up with your doctor as needed. If you develop new or worsening symptoms call 911 or come back to the ER for further evaluation. Prescriptions: No Action ondansetron 4 mg tablet,disintegrating 4 mg PO Q8H PRN (Reason: nausea and vomiting) Qty: 10 0RF mupirocin 2 % ointment 1 appl topical TID Qty: 22 1RF metoclopramide HCl [Reglan] 10 mg tablet 10 mg PO Q6H PRN (Reason: nausea and vomiting) Qty: 15 0RF Print Language: Maldivian
--- OUTSIDE RECORDS SUMMARY | 2024-09-15 10:57 | XMS_ITS | Encounter Summary ---
Author Organization [employer] Address [address] [place] [address] Care Team Providers Care Machine Lacer Name Role Phone Gwen Lucia NP Primary Care Provider [phone] Encounter Details Date Type Department Care Team ([facility] st Contact Info) Description 04/20/2024 Orders Only [facility] [address] [place] [address] Maddie Duron Social History Tobacco Use Types Packs/Day Years Used Date Smoking Tobacco: Never Passive Smoke Exposure: Never Smokeless Tobacco: Never Alcohol Use Standard Drinks/Week Comments Not Currently 0 (1 standard drink = 0.6 oz pur e alcohol) Alcohol Answer Date Recorded Frequency of Alcohol Consumption Not on file 02/24/2024 Average Number of Drinks Not on file 024 Frequency of Binge Drinking Not on file 02/04 Score 0 02/24/2024 Depression Answer Date Recorded Patient Health Questionnaire-9 Score 2 02/24/2024 Patient Health Questionnaire-9 Score 2 02/24/2024 Last PHQ-9: Questionnaire Data Not on file 1 Housing Stability Answer Date Recorded What is your housing situation today? I have poonam kirk 02/24/[address] you li ve. Do you have problems with any of the following? None of the above 02/24/2024 Food Insecurity Answer Date Recorded Within the past 12 months, y ou worried that your food would run out before you got money to buy more: Never True 02/24/2024 Within the past 12 months,th e food you bought just didn't last and you didn't have enough money to get more: Never True Transportation Answer Date Recorded In the past 12 months, has l ack of transportation kept you from medical appts, meetings, work or from getting things needed for daily living? No 02/24/2024 Utilities Answer Date Recorded In the past 12 months, has t he electric, gas, oil or water company threatened to shut off services in your home? No 02/24/2024 Depression Answer Date Recorded Patient Health Questionnaire-2 Score 1 02/24/2024 Internet Access Answer Date Recorded Internet Access Q1 Yes 02/24/2024 Internet Access Q2 Not on file 02/24/2024 Comments Unknown Sex and Gender Information Value Date Recorded Sex Assigned at Female 03/05/2022 10:17 AM EDT Legal Sex Female 10:17 AM EDT Gender Identity Female 03/05/2022 10:17 AM EDT Sexual Orientation Bisexual 03/05/2022 10 :17 AM EDT documented as of this encounter Plan of Treatment Not on file documented as of this encounter Procedures Procedure Name Priority Date/Time Associated Diagnosis Comments PAP/HPV Routine 03/25/2024 12:00 AM EST documented in this encounter Results * PAP/HPV (03/25/2024 12:00 AM EST) Pap Smear 1. NILM 1. NILM HPV Not Detected Undetected, Indeterminat e, Quantitative , Not Detected us Historical Provider HEALTH MAINTENANCE Edited Result - Final documented in this encounter Visit Diagnoses Not on filedocumented in this encounter Additional Health Concerns Assessment Noted Time PHQ-9 Depression Total Score: 2 02/24/20 24 2:50 PM EDT documented as of this encounter Care Teams Machine Lacer Relationship Specialty Start Date End Date Gwen Lucia NP [address] [place] [id number] PCP - General Family Medicine 07/08/23 documented as of this encounter
--- OUTSIDE RECORDS SUMMARY | 2024-09-15 10:57 | XMS_ITS | Clinical Summary ---
Author Organization [employer] Address [address] [place] [address] 7 [place] [address] Care Team Providers Care Career Professional Name Role Phone Gwen Lucia NP Primary Care Provider [phone] Allergies Active Allergy Reactions Criticality Noted Date Comments Vancomycin Hcl Hives,Itching High 02/24/2024 Medications acetaminophen (Tylenol) 325 MG tablet Take 650 mg by mouth every 6 (six) hours if needed. Active sodium chloride ([place] Nasal [place]) 0.65 % nasal sprayIndication s:Viral illness 1 spray each nostril q 1 hour prn congestion 30 mL 12 4 Active ibuprofen 600 MG tabletIndicatio ns:Viral illness 1 tab q 6 hours prn fever or pain 30 tablet 1 4 Active triamcinolone (Kenalog) 0.1 % creamIndication s:Rash Apply to the affected area BID till improved. 30 g 4 Active ammonium lactate (Lac-Hydrin) 12 % lotionIndicatio ns:Rash Apply topically if needed for dry skin. 225 g 1 4 02/24/20 Active Active Problems Problem Noted Date Diagnosed Date Depression with anxiety 01/24/2024 growth restriction antepartum 01/24/2024 Heartburn in 01/24/2024 Maternal varicella, non-immune 01/24/2024 Abscess of right axilla 01/24/2024 Assessment & Plan (01/24/2024 5:35 PM EDT): Right axillary abscess with cellulitis extending to right upper arm, warm tender Actively draining STAT referral to surgery as I am concerned there is tunnelling Recommended ceftriaxone IM pt declined due to needle phobia Wound culture collected Start doxycycline tonight, encouraged hydation, warm soaks If pt develops increased pain, fever or inability to tolerate abx, pt verbalized understanding of emergency evaluation in er Myopia of both eyes 01/17/2023 Hidradenitis 03/23/2018 Attention deficit hyperactivity disorder 015 Encounters Date Type Department Care Team Description 07/17/2024 Population Health Risk Score [facility] (C3) Department [address] [place] [phone] Provider, Population Health Generic from Last 3 Months Immunizations Name Administration Dates Next Due DTaP 09/16/2006, 4,01/19/2003,2002,0 2002 HPV, Quadrivalent 08/05/2014,03/16/2014,01/27/20 14 Hep A, ped/adol, 2 dose 01/21/2015,01/01/2013 Hep B, Adolescent or Pediatric 04/16/2003,2002,2002 Hib (HbOC) 10/26/2003,01/19/2003,2002 IPV 09/16/2006,04/16/2003,2002 ,2002 MMR 07/16/2003 MMRV 09/16/2006 Meningococcal MCV4P ACYW-135 03/09/2019,01/08/20 14 Pneumococcal Conjugate PCV 7 07/18/2004,01/20/20 03,2002,2002 Tdap 08/13/2023,01/07/2014 Varicella 07/16/2003 Family History Medical History Relation Name Comments No Known Problems Father Diabetes Maternal Grandmother Hyperlipidemia Mother Relation Name Status Comments Father Maternal Grandmother Mother Social History Tobacco Use Types Packs/Day Years Used Date Smoking Tobacco: Never Passive Smoke Exposure: Never Smokeless Tobacco: Never Tobacco Cessation:Counseling Given: Not Answered Alcohol Use Standard Drinks/Week Comments Not Currently 0 (1 standard drink = 0.6 oz pur e alcohol) Alcohol Answer Date Recorded Frequency of Alcohol Consumption Not on file 02/24/2024 Average Number of Drinks Not on file 10/21/2 024 Frequency of Binge Drinking Not on [...] Orientation Bisexual 03/05/2022 10 :17 AM EDT Last Filed Vital Signs Vital Sign Reading Time Taken Comments Blood Pressure 115/71 02/24/2024 2:45 PM EDT Pulse 86 02/24/2024 2:45 PM EDT Temperature 37.2 ??C (98.9 ??F) 02/24/2024 2:45 PM ED T Respiratory Rate 20 02/24/2024 2:45 PM EDT Oxygen Saturation 99% 02/24/2024 2:45 PM EDT Inhaled Oxygen Concentration - - Weight 71.1 kg (156 lb 12.8 oz) 02/24/2024 2:45 PM EDT Height 165.1 cm (5' 5 ) 02/24/2024 2:45 PM EDT Body Mass Index 26.09 02/24/2024 2:45 PM EDT Plan of Treatment Health Maintenance Due Date Last Done Comments Family Planning (PISQ) 2017 COVID-19 Vaccine ( season) 2024 Influenza Vaccine (#1) 2024 Alcohol/Substance Use Screening 02/23/2025 02/24/2024 Chlamydia and Gonorrhea Screening 02/23/2025 02/24/2024, 07/11/2020, 02/03/2020, Additional history exists Depression Screening 02/23/2025 02/24/2024, 02/24/20 24 SDOH Screening 02/23/2025 02/24/2024 Tobacco Screening 02/23/2025 02/24/2024 Pap Smear 03/25/2027 03/25/2024 DTaP/Tdap/Td Vaccines (8 - Td or Tdap) 08/12/2033 08/13/2023, 01/07/2014, 09/16/2006, Additional history exists Zoster Vaccines (1 of 2) 2052 RSV Patients and Patients Aged 60 years or older (1 - 1-dose 75+ series) 2077 Hepatitis B Vaccines Completed 04/16/2003, 02/05/2003, 2002 HIB Vaccines Completed 10/26/2003, 01/04, 2002 Pneumococcal Vaccine: Pediatrics (0 to 5 Years) and At-Risk Patients (6 to 49) Years) Aged Out 07/18/2004, 01/19/2003, 2002, Additional history exists No longer eligible based on patient's age to complete this topic IPV Vaccines Completed 09/16/2006, 04/05, 2002, Additional history exists HPV Vaccines Completed 08/05/2014, 03/06, 01/26/2014 Hepatitis A Vaccines Completed 01/21/2015, 01/02/20 13 Meningococcal Vaccine Completed 03/09/2019, 014 HIV Screening Completed 07/11/2020 Hepatitis C Screening Completed 07/11/2020 RSV under 20 months Aged Out No longe r eligible based on patient's age to complete this topic Rotavirus Vaccines Aged Out No longer eligible based on patient's age to complete this topic Procedures Procedure Name Priority Date/Time Associated Diagnosis Comments PAP/HPV Routine 03/25/2024 12:00 AM EST CHLAMYDIA/N. GONORRHOEAE RNA, TMA, UROGENITAL Routine 02/24/2024 3:46 PM EDT Encounter for health-related screening ZZZ HISTORICAL HEPATITIS C AB W/REFL TO HCV RNA, QN, PCR Routine 07/11/2020 2:30 PM EST HIV 1/2 ANTIGEN/ANTIBODY, FOURTH GENERATION W/RFL Routine 07/11/2020 2:30 PM EST from Last 3 Months or Most Recently Relevant to Health Maintenance Results * PAP/HPV (03/25/2024 12:00 AM EST) Pap Smear 1. NILM 1. NILM HPV Not Detected Undetected, Indeterminat e, Quantitative , Not Detected us Historical Provider HEALTH MAINTENANCE Edited Result - Final * Chlamydia/N. Gonorrhoeae RNA, TMA, Urogenitial (02/24/2024 3:46 PM EDT) CT PCR NOT DETECTED Not Detect. [facility] Comment:A not detected test result does not exclude the possibilityof infection because test results can be affected byimproper specimen collection, concurrent antibiotic therapy,or the number of organisms in the specimen which may bebelow the sensitivity of the test. As with many diagnostictests, results from the Xpert CT/NG assay should beinterpreted in conjunction with other laboratory andclinical data available to the clinician.Xpert CT/NG performance has not been evaluated in patientsless than 14 years of age. The assay should not be used forthe evaluationof suspected sexual abuse or for other medico-legalindications. Additional testing is recommended in anycircumstance when false positive or false negative resultscould lead to adverse medical, social or psychologicalconsequences. NG PCR NOT DETECTED Not Detect. [facility] Comment:A not detected test result does not exclude the possibilityof infection because test results can be affected byimproper specimen collection, concurrent antibiotic therapy,or the number of organisms in the specimen which may bebelow the sensitivity of the test. As with many diagnostictests, results from the Xpert CT/NG assay should beinterpreted in conjunction with other laboratory andclinical data available to the clinician.Xpert CT/NG performance has not been evaluated in patientsless than 14 years of age. The assay should not be used forthe evaluationof suspected sexual abuse or for other medico-legalindications. Additional testing is recommended in anycircumstance when false positive or false negative resultscould lead to adverse medical, social or psychologicalconsequences. Urine (Urine, Random) 02/24/2024 3:46 PM EDT 02/25/2024 1:11 PM EDT Narrative [facility] - 02/25/2024 2:43 PM EDT Urine Gwen Lucia NP LAB MICROBIOLOGY - [facility] Final Result [facility] [address] [place] [phone] * HEPATITIS C AB W/REFL TO HCV RNA, QN, PCR (07/11/2020 2:30 PM EST) HEPATITIS C ANTIBODY NON-REACT [facility] NON-REACT [facility] INDEX 0.02 <1.00 [facility] Comment: ?? HCV antibody was non-reactive. There is no laboratory ?? evidence of HCV infection. ?? In most cases, no further action is required. However, if recent HCV exposure is suspected, a test for HCV RNA (test code 95094) is suggested. ?? For additional information please refer to http://education.[employer]/faq/XCW08m5 (This link is being provided for informational/ educational purposes only.) ?? 07/11/2020 2:30 PM EST Anuja Quintana MD HISTORICAL/NON ORDERABLE LA BS Final Result Performing Organization Address [facility] Phone Number [facility] [address] * HIV 1/2 ANTIGEN/ANTIBODY,FOURTH GENERATION W/RFL (07/11/2020 2:30 PM EST) HIV-1/2 ANTIGEN AND ANTIBODIES, 4TH GENERATION W/ REFLEX NON-REACT [facility] NON-REACT [facility] Comment: HIV-1 antigen and HIV-1/HIV-2 antibodies were not detected. There is no laboratory evidence of HIV infection. ?? PLEASE NOTE: This information has been disclosed to you from records whose confidentiality may be protected by state law. ??If your state requires such protection, then the state law prohibits you from making any further disclosure of the information without the specific written consent of the person to whom it pertains, or as otherwise permitted by law. A general authorization for the release of medical or other information is NOT sufficient for this purpose. ? For additional information please refer to http://education.[employer]/faq/ARL443 (This link is being provided for informational/ educational purposes only.) ? The performance of this assay has not been clinically validated in patients less than 2 years old. ?? 07/11/2020 2:30 PM EST Anuja Quintana MD LAB BLOOD ORDERABLES Final Result Performing Organization Address [facility] [address] from Last 3 Months or Most Recently Relevant to Health Maintenance Insurance [facility] C3 Care Teams Career Professional Relationship Specialty Start Date End Date Gwen Lucia NP [address] [place] [phone] PCP - General Family Medicine 07/08/23
--- NOTE | 2024-09-15 11:33 | PC.NURSE ---
Pt reports feeling better, would like to be discharged home. NOEMI Stuart made aware.
[2024-09-15 11:46] VITALS: BP 108/76; PULSE 81; RESP 16; TEMP 36.9; O2SAT 99
== END 2024-09-15 11:46 | disposition home or self-care (01) ==
PROVIDERS: Emergency Provider Emergency Medicine
DX: R11.2 Nausea with vomiting, unspecified (principal)
CPT/HCPCS: 96361; 96374; 99283; 99284; J2405; J7120

== ENCOUNTER 2024-12-30 08:43 | Emergency (ER) | payer MEDICAID, SELFPAY ==
--- NOTE | ~2024-12-30 | XR_ITS ---
EXAMINATION: XR CHEST CLINICAL INFORMATION: right sided chest pain COMPARISON: None available. TECHNIQUE: 2 views of the chest were obtained. FINDINGS: No significant abnormality is noted involving the heart, lungs, mediastinum, bony thorax or soft tissues. XR/XR chest 2V IMPRESSION: No acute disease Electronically signed by: Chirag Rodríguez MD 12/30/2024 10:43 AM EDT
[2024-12-30 08:47] VITALS: BP 117/64; PULSE 84; RESP 16; TEMP 36.2; O2SAT 98; BMI 28.8
--- NOTE | 2024-12-30 09:03 | PC.NURSE ---
Pt roomed changed and placed on 05/07 monitor- states right lower quad abd pain worsening over past year now so severe it is making her double over in pain No N/V/D, denies VERNON uriarte as well.
[2024-12-30 09:05] VITALS: BP 108/72; PULSE 85; RESP 16; O2SAT 98
--- OUTSIDE RECORDS SUMMARY | 2024-12-30 09:42 | XMS_ITS ---
Author Organization [employer] Address [address] [place] [address] Care Team Providers Care Maintenance Plumber Name Role Phone Gwen Lucia NP Primary Care Provider [phone] Odell Huber RN Unavailable [phone] Gillian Mata Unavailable CHW Complex Status:Enrolled (Active) Start date:12/07/2024 Enrollment date:12/21/2024 Enrollment reason:ADT Feed Overview ED- Pt went to [facility] ED on 12/05/24. Please outreach for enrollment. Case Team Name Relationship Phone Gillian Mata(Responsible Staff) [phone] Continued Care and Services Coordination
--- OUTSIDE RECORDS SUMMARY | 2024-12-30 09:42 | XMS_ITS | Encounter Summary ---
Author Organization [employer] Address [address] [facility] 7t [place] [address] Care Team Providers Care Saxophone Teacher Name Role Phone Gwen Lucia NP Primary Care Provider [phone] Odell Huber RN Unavailable [phone] Gillian Mata Unavailable Encounter Details Date Type Department Care Team (Late st Contact Info) Description 04/20/2024 Orders Only [facility] [address] [place] [address] Maddie Duron Social History Tobacco Use Types [...] EST documented in this encounter Results * HM PAP/HPV (03/25/2024 12:00 AM EST) Pap Smear 1. NILM 1. NILM HPV Not Detected Undetected, Indeterminat e, Quantitative , Not Detected us Historical Provider HEALTH MAINTENANCE Edited Result - Final documented in this encounter Visit Diagnoses Not on filedocumented in this encounter Additional Health Concerns Assessment Noted Time PHQ-9 Depression Total Score: 2 02/24/20 2:50 PM EDT documented as of this encounter Care Teams Saxophone Teacher Relationship Specialty Start Date End Date Gwen Lucia NP [address] [place] [address] PCP - General Family Medicine 07/08/23 Odell Huber RN [address] [place] [phone] Registered Nurse Family Medicine 12/07/24 Gillian Mata 12/07/24 documented as of this encounter
--- OUTSIDE RECORDS SUMMARY | 2024-12-30 09:42 | XMS_ITS | Clinical Summary ---
Author Organization [employer] Address [address] [place] [address] 7t [place] [address] Care Team Providers Care Plug Assembler Name Role Phone Gwen Lucia NP Primary Care Provider [phone] Odell Huber RN Unavailable [phone] Gillian Mata Unavailable Allergies Active Allergy Reactions Criticality Noted Date Comments Vancomycin Hcl Hives,Itching High 02/24/2024 Medications acetaminophen (Tylenol) 325 MG tablet Take 650 mg by mouth every 6 (six) hours if needed. Active sodium chloride ([place] Nasal [place]) 0.65 % nasal sprayIndication s:Viral illness 1 spray each nostril q 1 hour prn congestion 30 mL 12 4 Active Additional Information Patient not taking.Reported on 12/21/2024 ibuprofen 600 MG tabletIndicatio ns:Viral illness 1 tab q 6 hours prn fever or pain 30 tablet 1 4 Active Additional Information Patient not taking.Reported on 12/21/2024 triamcinolone (Kenalog) 0.1 % creamIndication s:Rash Apply to the affected area BID till improved. 30 g 4 Active Additional Information Patient not taking.Reported on 12/21/2024 ammonium lactate (Lac-Hydrin) 12 % lotionIndicatio ns:Rash Apply topically if needed for dry skin. 225 g 1 4 02/24/20 Active Additional Information Patient not taking.Reported on 12/21/2024 Active Problems Problem Noted Date Diagnosed Date [...] Encounters Date Type Department Care Team Description 12/21/2024 Patient Outreach [address] [address] Gwen Lucia NP Care Management (C3CM- initial assessment/ enrollment.) 12/21/2024 Patient Outreach [address] [address] Gwen Lucia NP 12/21/2024 Patient Outreach [address] [address] Gwen Lucia NP Care Coordination (CM/CHW appt reminder) 12/14/[address] [address] Gwen Lucia NP 12/11/2024 Patient Outreach [address] [address] Gwen Lucia NP 12/10/2024 Patient Outreach [address] [address] Gwen Lucia NP Care Coordination (CM/CHW outreach) 12/07/2024 Patient Outreach [address] [address] Gwen Lucia NP Care Coordination (CM/CHW outreach) 12/07/2024 Patient Outreach [address] [address] Gwen Lucia NP Care Coordination (CHW chart Review) 12/07/[address] [facility] [address] [place] [address] Gwen Lucia NP Care Management (CM- chart review) 12/07/[address] [facility] [address] [place] [address] Gwen Lucia NP from Last 3 Months Immunizations Immunization Administration Dates Next Due DTaP 09/16/2006, 4,01/19/2003,2002,0 2002 HPV, Quadrivalent 08/05/2014,03/16/2014,01/27/20 14 Hep A, ped/adol, 2 dose 01/21/2015,01/01/2013 Hep B, Adolescent or Pediatric 04/16/2003,2002,2002 Hib ([facility]) 10/26/2003,01/19/2003,2002 IPV 09/16/2006,04/16/2003,2002 ,2002 MMR 07/16/2003 MMRV [...] Answer Date Recorded Patient Health Questionnaire-9 Score 0 12/21/2024 Patient Health Questionnaire-9 Score 0 12/21/2024 Last PHQ-9: Questionnaire Data Not on file 0 12/21/2024 Housing Stability Answer Date Recorded What is [...] Answer Date Recorded Patient Health Questionnaire-2 Score 0 12/21/2024 Internet Access Answer Date Recorded Internet Access Q1 No 12/21/2024 Internet Access Q2 Not on file 12/21/2024 Comments Unknown Sex and Gender Information Value Date Recorded Sex Assigned at Female 03/05/2022 10:17 AM EDT Legal Sex Female 10:17 AM EDT Gender Identity Female 03/05/2022 10:17 AM EDT Sexual Orientation Bisexual 03/05/2022 10 :17 AM EDT Last Filed Vital Signs Vital Sign Reading Time Taken Comments Blood Pressure 115/71 02/24/2024 2:45 PM EDT Pulse 86 02/24/2024 2:45 PM EDT Temperature 37.2 C (98.9 F) 02/24/2024 2:45 PM EDT Respiratory Rate 20 02/24/2024 2:45 PM EDT Oxygen Saturation 99% 02/24/2024 2:45 PM EDT Inhaled Oxygen Concentration - - Weight 71.1 kg (156 lb 12.8 oz) 02/24/2024 2:45 PM EDT Height 165.1 cm (5' 5 ) 02/24/2024 2:45 PM EDT Body Mass Index 26.09 02/24/2024 2:45 PM EDT Plan of Treatment Health Maintenance Due Date Last Done Comments Disability Screening 2002 Family Planning (PISQ) 2017 Meningococcal B Vaccine (1 of 2 - Standard) 2018 COVID-19 Vaccine ( - 2023- season) 2024 Influenza Vaccine (#1) 2025 Alcohol/Substance Use Screening 02/23/2025 02/24/2024 Chlamydia and Gonorrhea Screening 02/23/2025 02/24/2024, 07/11/2020, 02/03/2020, Additional history exists Tobacco Screening 02/23/2025 02/24/2024 Depression Screening 12/21/2025 12/21/2024, 12/22/19 25 SDOH Screening 12/21/2025 12/21/2024 Pap Smear 03/25/2027 03/25/2024 DTaP/Tdap/Td Vaccines (8 [...] Years) and At-Risk Patients (6 to 49) Years Aged Out 07/18/2004, 01/19/2003, 2002, Additional history [...] Procedure Name Priority Date/Time Associated Diagnosis Comments HM PAP/HPV Routine 03/25/2024 12:00 AM EST CHLAMYDIA/N. [...] EDT) CT PCR NOT DETECTED Not Detect. [facility] Comment:A not detected test result [...] psychologicalconsequences. NG PCR NOT DETECTED Not Detect. [facility] Comment:A not detected test result [...] PM EDT 02/25/2024 1:11 PM EDT Narrative [facility] - 02/25/2024 2:43 PM EDT Urine Gwen Lucia NP LAB MICROBIOLOGY - [facility] Final Result Performing Organization Address [facility] Co de Phone Number [facility] [address] [place] [phone] * HEPATITIS C AB W/REFL TO HCV RNA, QN, PCR (07/11/2020 2:30 PM EST) HEPATITIS C ANTIBODY NON-REACT [facility] NON-REACT [facility] INDEX 0.02 <1.00 [facility] Comment: HCV antibody was non-reactive. There is no laboratory evidence of HCV infection. In most cases, no further action is required. However, if recent HCV exposure is suspected, a test for HCV RNA (test code 37387) is suggested. For additional information please refer to http://education.[employer].com/faq/ZHK66i3 (This link is being provided for informational/ educational purposes only.) 07/11/2020 2:30 PM EST Anuja Quintana MD HISTORICAL/NON ORDERABLE LA BS Final Result [facility] [address] * HIV 1/2 ANTIGEN/ANTIBODY,FOURTH GENERATION W/RFL (07/11/2020 2:30 PM EST) HIV-1/2 ANTIGEN AND ANTIBODIES, 4TH GENERATION W/ REFLEX NON-REACT [facility] NON-REACT [facility] Comment: HIV-1 antigen and HIV-1/HIV-2 antibodies were not detected. There is no laboratory evidence of HIV infection. PLEASE NOTE: This information has been disclosed to you from records whose confidentiality may be protected by state law. If your state requires such protection, then the state law prohibits you from making any further disclosure of the information without the specific written consent of the person to whom it pertains, or as otherwise permitted by law. A general authorization for the release of medical or other information is NOT sufficient for this purpose. For additional information please refer to http://Carma.[employer]/faq/NRD045 (This link is being provided for informational/ educational purposes only.) The performance of this assay has not been clinically validated in patients less than 2 years old. 07/11/2020 2:30 PM EST us Anuja Quintana MD LAB BLOOD ORDERABLES Final Result [facility] [address] from Last 3 Months or Most Recently Relevant to Health Maintenance [facility] Care Teams Plug Assembler Relationship Specialty Start Date End Date Gwen Lucia NP [address] [place] [phone] PCP - General Family Medicine 07/08/23 Odell Huber, MATT [address] [place] [phone] Registered Nurse Family Medicine 12/07/24 Gillian Mata 12/07/24
--- OUTSIDE RECORDS SUMMARY | 2024-12-30 09:42 | XMS_ITS ---
Author Organization [employer] Address [address] [place] [address] Care Team Providers Care Blanket Winder Operator Name Role Phone Gwen Lucia NP Primary Care Provider [phone] Odell Huber RN Unavailable Gillian Mata Unavailable CM Complex Status:Enrolled (Active) Start date:12/07/2024 Enrollment date:12/21/2024 Enrollment reason:ADT Feed Overview ED- Pt went [place] [facility] [place]05[facility]. Case Team Name Relationship Phone Odell Huber RN(Responsible Staff) Registered Nurse [phone] Continued Care and Services Coordination
--- OUTSIDE RECORDS SUMMARY | 2024-12-30 09:42 | XMS_ITS | Encounter Summary ---
Author Organization [employer] Address [address] [facility] [address] [place] [address] Care Team Providers Care Representative Government Relations Name Role Phone Gwen Lucia NP Primary Care Provider [phone] Odell Huber RN Unavailable [phone] Gillian Mata Unavailable Reason for Visit * Reason Comments Care Management C3- initial assess ment/ enrollment. Encounter Details Date Type Department Care Team (Late st Contact Info) Description 12/21/2024 Patient Outreach [facility] [address] [place] [address] Gwen Lucia NP [address] [place] [address] Care Management (C3- initial assessment/ enrollment.) Social History Tobacco Use Types Packs/Day Years [...] AM EDT documented as of this encounter Functional Status * Over the past 2 weeks, how often have you been bothered by any of the following problems? Question Answer Date of Assessment Author Patient Health Questionnaire -2 Score 0 12/21/2024 2:00 PM EDT Odell Huber RN * Little interest or pleasure in doing things Answer Date of Assessment Author Not at all 12/21/2024 2:00 PM EDT Odell Huber RN * Feeling down, depressed, or hopeless Answer Date of Assessment Author Not at all 12/21/2024 2:00 PM EDT Odell Huber, MATT * Trouble falling or staying asleep, or sleeping too much Answer Date of Assessment Author Not at all 12/21/2024 2:00 PM EDT Odell Huber, RN * Feeling tired or having little energy Answer Date of Assessment Author Not at all 12/21/2024 2:00 PM EDT Odell Huber, MATT * Poor appetite or overeating Answer Date of Assessment Author Not at all 12/21/2024 2:00 PM Odell Pike RN * Feeling bad about yourself - or that you are a failure or have let yourself or your family down Answer Date of Assessment Author Not at all 12/21/2024 2:00 PM [facility]IRT Odell Huber RN * Trouble concentrating on things, such as reading the newspaper or watching television Answer Date of Assessment Author Not at all 12/21/2024 2:00 PM Odell Pike RN * Moving or speaking so slowly that other people could have noticed? Or the opposite - being so fidgety or restless that you have been moving around a lot more than usual. Answer Date of Assessment Author Not at all 12/21/2024 2:00 PM Odell Pike RN * Thoughts that you would be better off or hurting yourself in some way Answer Date of Assessment Author Not at all 12/21/2024 2:00 PM Odell Pike RN * Patient Health Questionnaire-9 Score Answer Date of Assessment Author 0 12/21/2024 2:00 PM Odell Pike RN * Over the last 2 weeks, how often have you been bothered by any of the following problems? Question Answer Date of Assessment Author Feeling nervous, anxious, or on edge 0 12/21/2024 2:00 PM Odell Pike RN Not being able to stop or co ntrol worrying 0 12/21/2024 2:00 PM Odell Pike RN Worrying too much about diff erent things 0 12/21/2024 2:00 PM Odell Pike RN Trouble relaxing 0 12/21/2024 2:00 PM Odell Gaviria RN Being so restless that it is hard to sit still 0 12/21/2024 2:00 PM Odell Pike RN Becoming easily annoyed or irritable 0 12/21/2024 2:00 PM Odell Pike RN Feeling afraid as if somethi ng awful might happen 0 12/21/2024 2:00 PM NASIRT Odell Huber RN AMENA-7 Total Score 0 12/21/2024 2:00 PM EDT Odell Huber RN documented as of this encounter Plan of Treatment Not on file documented as of this encounter Visit Diagnoses Not on filedocumented in this encounter Additional Health Concerns Assessment Noted Time PHQ-9 Depression Total Score: 0 12/22/19 2:00 PM EDT documented as of this encounter Care Teams Representative Government Relations Relationship Specialty Start Date End Date Gwen Lucia NP [address] [place] [id number] PCP - General Family Medicine 07/08/23 Odell Huber RN [address] [place] [id number] Registered Nurse Family Medicine 12/07/24 Gillian Mata 12/07/24 documented as of this encounter
--- NOTE | 2024-12-30 10:03 | ED_ITS ---
HPI - Abdominal Pain General Chief Complaint: Abdominal Pain Stated Complaint: R Side Pain Since Giving 1 Yr Ago Time Seen by Provider: 12/30/24 10:03 Source: patient Mode of arrival: ambulatory Limitations: no limitations History of Present Illness ED Provider: HPI narrative: 24-year-old woman presenting with presenting with right-sided chest wall pain and subdiaphragmatic pain for the past 1 year ever since she gave , gets better with the ibuprofen, today she was having a little bit more pain took ibuprofen by the time I saw her pain has improved, she is a smoker, no fevers or chills no hemoptysis, this is chronic intermittent, no fevers or chills nausea or vomiting hematuria reported. Related Data Previous Rx's ?Medication ?Instructions ?Recorded ondansetron 4 mg disintegrating 4 mg PO Q8H PRN nausea and 11/10/21 tablet vomiting #10 tabs mupirocin 2 % topical ointment 1 appl topical TID #22 grams 11/23/21 metoclopramide HCl 10 mg tablet 10 mg PO Q6H PRN nause a and 03/10/23 (Reglan) vomiting #15 tabs Allergies Allergy/AdvReac Type Severity Reaction Status Date / Time No Known Allergies Allergy Verified 12/30/24 08:48 Review of Systems Constitutional: Reports as per [facility] Past Medical History Medical History No known health problems Social History Social History (System 01/30/24 @ 16:13 by Edna Lockett) Alcohol intake: former Smoked in Last 30 Days: No Use of substances other than those prescribed or required for medical reasons: Yes Substance Use Type: Marijuana Substance Use Type Other:: BID Advance Directives: No Advance Directives Information Provided: Yes Do you have a plan to hurt others: No Plan Sexual orientation: Straight/Heterosexual Gender identity: Female Physical Exam ED Vital Signs: Vital Signs - 24 hr 12/30/24 08:47 12/30/24 09:05 12/30/24 10:18 Temperature 97.1 F 98.3 F Pulse Rate 84 85 89 Respiratory Rate 16 16 18 Blood Pressure 117/64 108/72 109/47 L Pulse Oximetry 98 98 98 Oxygen Delivery Method Room Air Room Air Room Air BMI result Body Mass Index 28.8 Const Other: * Gen: ?Overall well-appearing patient * CV: RRR, no obvious murmurs appreciated * Resp: ?No wheezing rales rhonchi no stridor moving air well * Abd: ?Bowel sounds are present, no tenderness no rebound no rigidity * MSK: FROM, strength 5/5 all extremities * Skin: Warm, dry, intact, * Neuro: ?Alert and oriented x3, moving upper and lower extremities symmetrically, no obvious facial asymmetry noted Medical Decision Making Medical Decision Making [facility] Narrative: PERC negative, chest x-ray to evaluate for pneumonia, pneumothorax, hiatal hernia, other considerations include cholecystitis, pancreatitis/chronic, hepatitis, workup we will reflect that, did not feel further imaging such as CAT scan of the abdomen and pelvis or chest CTA is indicated Pain is better with anti-inflammatories, I suspect diaphragmatic issue or costochondritis Differential Diagnosis Differential Diagnoses: The differential diagnosis associated with the presentation includes (See above) Lab Data [facility] Lab Attestation statement: I reviewed the patient's lab results. 12/30/24 10:25 12/30/24 10:25 Labs: Lab Results 12/30/24 Range/Units 10:25 WBC 7.8 (4.8-10.8) X10*3/uL RBC 5.20 (4.20-5.50) X10*6/uL Hgb 13.8 (12.0-16.0) g/dl Hct 42.0 (37.0-47.0) % MCV 80.8 (80.0-98.0) fL MCH 26.5 L (27.0-33.0) pg MCHC 32.9 (31.0-35.0) g/dl RDW 13.2 (11.0-16.0) % Plt Count 270 (160-400) X10*3/uL MPV 12.4 H (9.4-12.3) fL Immature Gran % (Auto) 0.4 (0.0-0.4) % Neut % (Auto) 70.8 (45-73) % Lymph % (Auto) 23.1 (20-40) % Trigg % (Auto) 3.7 (2-11) % Eos % (Auto) 1.5 (0-4) % Baso % (Auto) 0.5 (0-2) % Lymph # (Auto) 1.8 (1.2-4.9) X10*3/uL Trigg # (Auto) 0.3 (0.1-1.2) X10*3/uL Eos # (Auto) 0.1 (0.0-0.4) X10*3/uL Baso # (Auto) 0.0 (0.0-0.2) X10*3/uL Abs Immat Gran (auto) 0.03 (0.00-0.03) X10*3/uL Absolute Neuts (auto) 5.5 (2.0-8.3) x10*3/uL Absolute Nucleated RBC 0.000 (0.0-0.012) X10*3/uL Nucleated RBC % (auto) 0.0 (0.0-0.2) /100WBC Sodium 138 (135-145) mmol/L Potassium 4.3 (3.3-5.1) mmol/L Chloride 106 (96-108) mmol/L Carbon Dioxide 24 (22-29) mmol/L Anion Gap 12 (12-20) BUN 9 (9-16) mg/dL Creatinine 0.78 (0.5-1.4) mg/dL Estim Creat Clear Calc 117.2 Estimated GFR > 60 Random Glucose 84 (60-115) mg/dL Calcium 9.9 (8.4-10.2) mg/dL Total Bilirubin 0.5 (0.0-1.0) mg/dL AST 24 (5-31) U/L ALT 22 (0-31) U/L Alkaline Phosphatase 65 (39-117) U/L Total Protein 8.0 (6.5-8.0) g/dL Albumin 5.1 H (3.5-5.0) g/dL Urine Color Yellow Urine Appearance Clear Urine pH 7.0 (5.0-9.0) Ur Specific Colton >= 1.030 H (1.005-1.025) Urine Protein Trace (Neg-Trace) mg/dL Urine Glucose (UA) Negative (Negative) mg/dL Urine Ketones Trace (Negative) mg/dL Urine Blood Negative (Negative) Urine Nitrite Negative (Negative) Ur Leukocyte Esterase Trace H (Negative) Urine RBC 0-2 (0-2) /HPF Urine WBC 0-5 (0-5) /HPF Ur Squamous Epith Cells 0-2 (0-2) /HPF Urine Bacteria None Seen (None Seen) Hyaline Casts 0-2 (0-2) /LPF Independent Interpretation I performed an independent interpretation of an: Plain X-Ray (My independent chest xray interpretation: Lungs: Lungs are clear bilaterally without evidence of focal consolidation, pleural effusion, or pneumothorax. Cardiac silhouette is unremarkable, no obvious mediastinal widening, no obvious bony abnormalities such as fractures. Impression: Normal chest X-r) Prescription Management I considered prescription management with: Pain Medication Discharge Plan Discharge Clinical Impression: Right-sided chest wall pain Patient Disposition: Home, Self-Care Additional Instructions: Your workup has been reassuring, chest x-ray, blood work, urinalysis, I suspect you have what is called costochondritis, I would recommend you make a visit with a chiropractor, possibly rib adjustment and back adjustment may help you and this is likely to happen after giving , you can continue using ibuprofen as needed any other issues concerns come back to the ER Prescriptions: No Action ondansetron 4 mg tablet,disintegrating 4 mg PO Q8H PRN (Reason: nausea and vomiting) Qty: 10 0RF mupirocin 2 % ointment 1 appl topical TID Qty: 22 1RF metoclopramide HCl [Reglan] 10 mg tablet 10 mg PO Q6H PRN (Reason: nausea and vomiting) Qty: 15 0RF Stand Alone Forms: Work/School Release Print Language: Polish
[2024-12-30 10:18] VITALS: BP 109/47; PULSE 89; RESP 18; TEMP 36.8; O2SAT 98
[2024-12-30 10:29] LABS: MANUAL DIFF FLAG NO
[2024-12-30 10:32] LABS: Appearance Urine Clear; Glucose Urine UA Negative (Negative); PH 7.0 (5.0-9.0); Specific Gravity - Urine >= 1.030 (1.005-1.025); UMIC TRIGGER UACC YES
[2024-12-30 10:33] LABS: Hematocrit 42.0 % (37.0-47.0); Hemoglobin 13.8 g/dl (12.0-16.0); Imm Gran Abs Auto 0.03 X10*3/uL (0.00-0.03); Imm Gran Pct Auto 0.4 % (0.0-0.4); Lymphocytes Absolute Auto 1.8 X10*3/uL (1.2-4.9); Mean Corpuscular HGB Conc 32.9 g/dl (31.0-35.0); Mean Corpuscular Hemoglobin 26.5 pg (27.0-33.0); Mean Corpuscular Volume 80.8 fL (80.0-98.0); NRBC Abs Auto 0.000 X10*3/uL (0.0-0.012); NRBC Pct Auto 0.0 /100WBC (0.0-0.2); Platelet Count 270 X10*3/uL (160-400); Red Blood Count 5.20 X10*6/uL (4.20-5.50); White Blood Count 7.8 X10*3/uL (4.8-10.8)
[2024-12-30 10:52] LABS: Alanine Aminotransferase 22 U/L (0-31); Albumin Level 5.1 g/dL (3.5-5.0); Alkaline Phosphatase 65 U/L (39-117); Anion Gap 12 (12-20); Aspartate Amino Transferase 24 U/L (5-31); Blood Urea Nitrogen 9 mg/dL (9-16); Calcium 9.9 mg/dL (8.4-10.2); Carbon Dioxide 24 mmol/L (22-29); Chloride 106 mmol/L (96-108); Creatinine Clr Calc Pharmacy 117.2; Estimated Glomerular Filt Rate > 60; Potassium 4.3 mmol/L (3.3-5.1); Sodium 138 mmol/L (135-145); Total Protein 8.0 g/dL (6.5-8.0)
[2024-12-30 11:34] VITALS: BP 109/47; PULSE 89; RESP 18; TEMP 36.8; O2SAT 98
== END 2024-12-30 11:35 | disposition home or self-care (01) ==
PROVIDERS: Emergency Provider Emergency Medicine
DX: R07.89 Other chest pain (principal)
CPT/HCPCS: 36415; 71046; 80053; 81001; 85025; 99283; 99284

== ENCOUNTER → 2024-12-30 10:09 | Outpatient (BNV) | payer MEDICAID, SELFPAY | PROVIDERS: Emergency Provider Emergency Medicine; Visit Provider Radiology Diagnostic Radiology | DX: R07.89 Other chest pain (principal) | CPT/HCPCS: 71046 ==